=== PATIENT | female | born 1990 | race Two or more races ===

== ENCOUNTER 2024-10-06 20:58 | Emergency (ER) | payer MEDICAID, OTHER ==
[~2024-10-06] VITALS: Ht 162.6 cm; Wt 83.9 kg
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
[2024-10-06 23:22] VITALS: PULSE 82; RESP 18; O2SAT 96
[2024-10-06] MEDS: KETOROLAC TROMETH 30 MG/ML 1ML VIAL IM ONE (23:22)
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
[2024-10-07] MEDS ORDERED: IBUP-1455 PO (01:05)
[2024-10-07] MEDS ORDERED: CYCL-837 PO (01:05)
[2024-10-07 01:23] VITALS: BP 100/65; PULSE 71; RESP 18; TEMP 97.9; O2SAT 97
== END 2024-10-07 01:24 | disposition home or self-care (01) ==
LOC: ER 20:58
DX: S80.01XA Contusion of right knee, initial encounter (principal); S09.8XXA Other specified injuries of head, initial encounter; V89.2XXA Person injured in unspecified motor-vehicle accident, traffic, initial encounter; Y93.89 Activity, other specified; Y92.89 Other specified places as the place of occurrence of the external cause; Y99.8 Other external cause status
CPT/HCPCS: 70450; 73562; 96372; 99285; J1885